=== PATIENT | female | born 1975 | race African-American/Black ===

== ENCOUNTER 2022-12-20 12:05 | Outpatient (REF) | payer MEDICAID, SELFPAY ==
[2022-12-20 14:36] LABS: HCT 41.4 % (36.0-46.0); HGB 13.2 g/dL (11.2-15.7); MCH 29.2 pg (27.0-33.0); MCHC 31.9 % (32.0-36.0); MCV 92 fL (80-95); MPV 9.5 fL (8.0-11.0); Platelet Count 419 10^3/uL (130-400); RBC 4.52 10^6/uL (3.93-5.22); RDW 13.1 % (11.7-14.6); RDW-SD 43.8 fL; WBC 5.31 10^3/uL (4.4-10.8)
[2022-12-20 14:51] LABS: ALT 19 U/L (14-59); AST 18 U/L (15-37); Albumin 3.6 g/dL (3.4-5.0); Alkaline Phosphatase 79 U/L (46-116); BUN 14 mg/dL (7-18); Bilirubin, Total 0.3 mg/dL (0.2-1.0); CREATININE 1.1 mg/dL (0.55-1.02); Calcium 9.3 mg/dL (8.5-10.1); Calculated LDL 101 mg/dL (<100); Chloride 102 mmol/L (98-107); Cholesterol 179 mg/dL (<200); Estimated GFR 61.98 (mL/min/1.73m2); Glucose 93 mg/dL (74-106); HDL Cholesterol 69 mg/dL (40-60); Potassium 4.5 mmol/L (3.5-5.1); Sodium 136 mmol/L (136-145); TSH (W/Ref FT4) 0.65 uIU/mL (0.36-3.74); Total Protein 8.2 g/dL (6.4-8.2); Triglyceride 49 mg/dL (<150)
== END 2022-12-20 12:06 | disposition home or self-care (01) ==
LOC: NCHCN 12:05
PROVIDERS: Visit Provider Family Medicine
DX: Z13.0 Encounter for screening for diseases of the blood and blood-forming organs and certain disorders involving the immune mechanism (principal); Z13.29 Encounter for screening for other suspected endocrine disorder; Z13.220 Encounter for screening for lipoid disorders; R03.0 Elevated blood-pressure reading, without diagnosis of hypertension
CPT/HCPCS: 80053; 80061; 85027; 84443

== ENCOUNTER 2023-04-03 15:10 | Outpatient (REF) | payer MEDICAID, SELFPAY ==
--- NOTE | 2023-04-03 14:00 | PAPFT_PTH ---
PATIENT: Cassy Valerio LOC: [facility] U#:[id number] AGE/SX: 47/F ROOM: RE04/03/[address]: JOHN: 1975 BED: DIS: 04/03/2023 SPEC #: [id number] RECD: 04/04/23 13:00 STATUS: TRISHA JASON #: [id number] JAMAR: 04/03/23 14:[address]: Andie Garrett DEPT: [facility] Cytology RECD BY: Armida Horn ENTERED: 04/04/23 13:00 SP TYPE: PAPFT GEORGE DR: Unknown,Unknown Tissues: 1 - CX/ENDOCX FOR PAP SMEARS Procedures: PAP THIN PREP/[facility] Screening HPV DNA PROBE Comments: [id number]
== END 2023-04-03 15:11 | disposition home or self-care (01) ==
LOC: NCHCN 15:10
PROVIDERS: Visit Provider Family Medicine
DX: Z00.00 Encounter for general adult medical examination without abnormal findings (principal); Z12.4 Encounter for screening for malignant neoplasm of cervix
CPT/HCPCS: 88142; 87624

== ENCOUNTER 2024-08-06 10:26 | Outpatient (REF) | payer MEDICAID, SELFPAY ==
[2024-08-06 15:48] LABS: HCT 37.9 % (36.0-46.0); HGB 12.1 g/dL (11.2-15.7); MCH 27.3 pg (27.0-33.0); MCHC 31.9 % (32.0-36.0); MCV 85 fL (80-95); MPV 9.3 fL (8.0-11.0); Platelet Count 467 10^3/uL (130-400); RBC 4.44 10^6/uL (3.93-5.22); RDW 15.4 % (11.7-14.6); RDW-SD 47.8 fL; WBC 5.04 10^3/uL (4.4-10.8)
[2024-08-06 16:41] LABS: ALT 19 U/L (14-59); AST 18 U/L (15-37); Albumin 3.9 g/dL (3.4-5.0); Alkaline Phosphatase 95 U/L (46-116); Anion Gap 7.7 mmol/L (3-11); BUN 10 mg/dL (7-18); Bilirubin, Total 0.2 mg/dL (0.2-1.0); CO2 28.3 mmol/L (21.0-32.0); CREATININE 1.2 mg/dL (0.55-1.02); Calcium 9.6 mg/dL (8.5-10.1); Calculated LDL 125 mg/dL (<100); Chloride 101 mmol/L (98-107); Cholesterol 199 mg/dL (<200); Estimated GFR 55.15 (mL/min/1.73m2); Glucose 99 mg/dL (74-106); HDL Cholesterol 58 mg/dL (>or=50); Potassium 4.5 mmol/L (3.5-5.1); Sodium 137 mmol/L (136-145); TSH 1.75 uIU/mL (0.36-3.74); Total Protein 8.2 g/dL (6.4-8.2); Triglyceride 81 mg/dL (<150); Vitamin D 25 Total 16 ng/mL (30-100)
[2024-08-06 17:13] LABS: FREE T4 1.04 ng/dL (0.76-1.46)
[2024-08-06 17:23] LABS: Hemoglobin A1C 5.7 % (<5.7)
[2024-08-06 22:45] LABS: T3, Total 142 ng/dL (97-169)
[2024-08-08 15:38] LABS: Bacterial Vaginosis (BV) Negative (Negative); Candida glabrata Negative (Negative); Candida species group Negative (Negative); Chlamydia Result Negative (Negative); GC Result Negative (Negative); Trichomonas vaginalis Negative (Negative)
== END 2024-08-06 10:27 | disposition home or self-care (01) ==
LOC: NCHCN 10:26
PROVIDERS: Visit Provider Family Medicine
DX: N76.0 Acute vaginitis (principal); Z00.00 Encounter for general adult medical examination without abnormal findings; E55.9 Vitamin D deficiency, unspecified; I10 Essential (primary) hypertension; E78.5 Hyperlipidemia, unspecified; R73.03 Prediabetes; L65.9 Nonscarring hair loss, unspecified; D64.9 Anemia, unspecified
CPT/HCPCS: 80053; 80061; 81513; 82306; 85027; 87481; 87491; 87591; 87661; 83036; 84439; 84443; 84480